=== PATIENT | male | born 1965 | race Caucasian/White ===

== ENCOUNTER 2017-02-28 13:46 | Emergency (ER) | payer BC ==
[2017-02-28 14:05] VITALS: BP 127/68
[2017-02-28] MEDS ORDERED: Fluorescein Sodium TOPICAL* 1 MG TEST OPHTHALMIC ONE (15:14)
[2017-02-28] MEDS ORDERED: Tetracaine 0.5% OPTH.SOL 4 ML* 1 DROP BTL LEFT EYE ONE (15:15)
[2017-02-28] MEDS ORDERED: Eye Irrigation Solution 30 ML BOTTLE LEFT EYE ONE (15:15)
--- NOTE | 2017-02-28 18:04 | UC ---
Eye Complaint HPI - HPI Summary HPI Summary: 1730 YESTERDAY; WHILE MOWING LAWN HIT IN LEFT EYE WITH BRANCH. CONCERN FOR CORNEAL ABRASION - History of Current Complaint Chief Complaint: UCEye Stated Complaint: EYE INJURY Time Seen by Provider: 02/28/17 15:06 Hx Obtained From: Patient Onset/Duration: Sudden Onset, Lasting Hours, Still Present Timing: Hours Severity Initially: Mild Severity Currently: Mild Pain Intensity: 2 Pain Scale Used: 0-10 Numeric Location of Injury: Conjunctiva - LEFT Character: Dull Aggravating Factor(s): Nothing Alleviating Factor(s): Nothing Associated Signs And Symptoms: Positive: Drainage (Clear). Negative: Photophobia, Drainage (Purulent), Vision Impairment Bilateral, Vision Impairment Right, Vision Impairment Left - Risk Factors Penetrating Injury Risk Factor: Negative Acute Glaucoma Risk Factors: Eye Trauma Optic Artery Occlusion Risk Factors: Negative - Allergies/Home Medications Allergies/Adverse Reactions: Allergies Allergy/AdvReac Type Severity Reaction Status Date / Time No Known Allergies Allergy Verified 02/28/17 14:06 PMH/Surg Hx/FS Hx/Imm Hx Previously Healthy: Yes - Surgical History Surgical History: Yes Surgery Procedure, Year, and Place: right thumb surgery 2000 - Family History Known Family History: Positive: None, Cardiac Disease - father, Hypertension, Other - CVA- mother Negative: Diabetes - Social History Occupation: Employed Full-time Lives: With Family Alcohol Use: Occasionally Alcohol Amount: a beer Substance Use Type: Marijuana Substance Use Comment - Amount & Last Used: very intermittently - last use 3-4 months ago Smoking Status (MU): Never Smoked Tobacco - Immunization History Most Recent Influenza Vaccination: never Most Recent Tetanus Shot: <10 yrs Review of Systems Constitutional: Negative Skin: Negative Eyes: Eye Redness ENT: Negative Respiratory: Negative Cardiovascular: Negative Gastrointestinal: Negative Genitourinary: Negative Motor: Negative Neurovascular: Negative Musculoskeletal: Negative Neurological: Negative Psychological: Negative All Other Systems Reviewed And Are Negative: Yes Physical Exam Triage Information Reviewed: Yes Appearance: Well-Appearing Vital Signs: Initial Vital Signs Temp 97.6 F 02/28/17 14:01 Pulse 76 02/28/17 14:01 Resp 12 02/28/17 14:01 BP 127/68 02/28/17 14:01 Pulse Ox 97 02/28/17 14:01 Vital Signs Reviewed: Yes Eyes: Positive: Conjunctiva Inflamed, Discharge ENT Exam: Normal ENT: Positive: Normal ENT inspection, Hearing grossly normal, TMs normal Dental Exam: Normal Neck exam: Normal Neck: Positive: Supple, Nontender Respiratory Exam: Normal Respiratory: Positive: Chest non-tender, Lungs clear, Normal breath sounds, No respiratory distress, No accessory muscle use Cardiovascular Exam: Normal Cardiovascular: Positive: RRR, No Murmur Abdominal Exam: Normal Abdomen Description: Positive: Nontender, No Organomegaly Musculoskeletal Exam: Normal Musculoskeletal: Positive: Strength Intact, ROM Intact Neurological Exam: Normal Psychological Exam: Normal Skin Exam: Normal Procedures - Procedure Summary Procedure Summary: FLUORESCEIN UPTAKE ON LEFT CORNEAL BORDER 3OCLOCK TO 6OCLOCK. NEGATIVE SIDEL'S SIGN Eye Complaint Course/Dx - Differential Dx/Diagnosis Differential Diagnosis/HQI/PQRI: Conjunctivitis Provider Diagnoses: LEFT CORNEAL ABRASION Discharge - Discharge Plan Condition: Stable Disposition: HOME Prescriptions: Erythromycin OPTH OINT* 1 applic LEFT EYE TID #1 ophth.oint Patient Education Materials: Corneal Abrasion (ED) Referrals: Pop Brewer MD [Primary Care Provider] - Edgar Silvestre MD [Medical Doctor] -
== END 2017-02-28 15:51 | disposition home or self-care (01) ==
LOC: UCEAST 13:46
DX: S05.02XA Injury of conjunctiva and corneal abrasion without foreign body, left eye, initial encounter (principal); W22.8XXA Striking against or struck by other objects, initial encounter; Y93.H2 Activity, gardening and landscaping
CPT/HCPCS: 99212; A9270-GY; G0463

== ENCOUNTER 2018-07-28 17:06 | Emergency (ER) | payer BC ==
[2018-07-28 17:22] VITALS: BP 154/91
--- NOTE | 2018-07-28 17:38 | UC ---
Head Injury HPI - HPI Summary HPI Summary: pt was struck in forehead by abother person's forehead playing basket ball yesterday, did not fall, no LOC and he cont to play the game. after the game he lifted weights, went home and watched a movie-experienced a bit of blurred vision at one time but not convinced it is diff than in past d/t eye sight.Slept well last night, today played 3 games of "hard basketball" during the 3rd game he felt tired and bit dizzy. finished game. has had slight scratchy throat over past 3-4 day as well - History Of Current Complaint Chief Complaint: UCHeadInjury Stated Complaint: HEAD INJURY Time Seen by Provider: 07/28/18 17:29 Hx Obtained From: Patient Onset/Duration: Sudden Onset Pain Intensity: 1 Character: Other Aggravating Factor(s): Nothing Alleviating Factor(s): Nothing Associated Signs And Symptoms: Positive: Nausea - one episode during basketball game. Negative: LOC (Time In Secs./Mins/Hrs), Confusion, Memory Loss, Epistaxis , Neck Pain, Vomiting - Allergies/Home Medications Allergies/Adverse Reactions: Allergies Allergy/AdvReac Type Severity Reaction Status Date / Time No Known Allergies Allergy Verified 07/28/18 17:09 PMH/Surg Hx/FS Hx/Imm Hx Previously Healthy: Yes Endocrine History: Dyslipidemia - Surgical History Surgical History: Yes Surgery Procedure, Year, and Place: right thumb surgery 2000 - Family History Known Family History: Positive: None, Cardiac Disease - father, Hypertension, Other - CVA- mother Negative: Diabetes - Social History 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 Negative: Epistaxis, Sinus Pain/ Tenderness Respiratory: Positive: Negative Cardiovascular: Positive: Negative. Negative: Chest Pain Gastrointestinal: Positive: Negative Neurovascular: Positive: Negative Musculoskeletal: Positive: Negative Neurological: Positive: Negative. Negative: Headache, Weakness, Paresthesia Psychological: Positive: Negative Is Patient Immunocompromised?: No Physical Exam Triage Information Reviewed: Yes Appearance: Well-Appearing, No Pain Distress, Well-Nourished Vital Signs: Initial Vital Signs Temp 97.5 F 07/28/18 17:10 Pulse 87 07/28/18 17:10 Resp 18 07/28/18 17:10 BP 154/91 07/28/18 17:10 Pulse Ox 98 07/28/18 17:10 Vital Signs Reviewed: Yes Eye Exam: Normal - PERRLA Neck exam: Normal Neck: Positive: Supple, Nontender Respiratory Exam: Normal Respiratory: Positive: Lungs clear Cardiovascular Exam: Normal Cardiovascular: Positive: RRR Musculoskeletal Exam: Normal Musculoskeletal: Positive: Strength Intact, ROM Intact Neurological Exam: Normal Neurological: Positive: Alert Psychological Exam: Normal Skin Exam: Normal Head Injury Course/Dx - Differential Dx/Diagnosis Differential Diagnosis/HQI/PQRI: Cervical Sprain, Concussion With LOC, Contusion , Hematoma, Intracranial Bleed Provider Diagnoses: mild concussion w/o LOC Discharge - Sign-Out/Discharge Documenting (check all that apply): Patient Departure All imaging exams completed and their final reports reviewed: No Studies - Discharge Plan Condition: Good Disposition: HOME Patient Education Materials: Sports Concussion (ED) Referrals: Pop Brewer MD [Primary Care Provider] - 3 Days (if no better and to rechekc blood pressure) Additional Instructions: Rest avoid unnecessary screen time. no sports or weight lifting until symptom free Please report to ER if you develop headache, memory loss, or any other changes in symptoms - Billing Disposition and Condition Condition: GOOD Disposition: Home - Attestation Statements Provider Attestation: I was available for consult. This patient was seen by the [facility]. The patient was not presented to, seen by, or examined by me. -Lisa
== END 2018-07-28 17:52 | disposition home or self-care (01) ==
LOC: UCEAST 17:06
DX: S06.0X0A Concussion without loss of consciousness, initial encounter (principal); W50.0XXA Accidental hit or strike by another person, initial encounter; Y93.67 Activity, basketball; Y92.9 Unspecified place or not applicable
CPT/HCPCS: 99211; G0463